=== PATIENT | male | born 1970 | race Two or more races ===

== ENCOUNTER 2019-01-14 07:21 | Outpatient (CLI) | payer OTHER | END 2019-01-14 07:24 | disposition home or self-care (01) | LOC: RAD 07:21 | DX: J06.9 Acute upper respiratory infection, unspecified (principal) ==

== ENCOUNTER 2019-02-10 08:28 | Outpatient (CLI) | payer OTHER | END 2019-02-10 08:41 | disposition home or self-care (01) | LOC: LAB 08:28 | DX: R31.0 Gross hematuria (principal); Z51.81 Encounter for therapeutic drug level monitoring ==

== ENCOUNTER 2019-02-12 07:29 | Outpatient (CLI) | payer OTHER | END 2019-02-12 07:34 | disposition home or self-care (01) | LOC: TOM 07:29 | DX: D35.00 Benign neoplasm of unspecified adrenal gland (principal); R31.0 Gross hematuria ==

== ENCOUNTER 2019-03-03 07:11 | Outpatient (CLI) | payer OTHER | END 2019-03-03 07:30 | disposition home or self-care (01) | LOC: SONOGRAMA 07:11 | DX: Q53.10 Unspecified undescended testicle, unilateral (principal) ==

== ENCOUNTER → 2021-05-05 08:35 | Outpatient (CLI) | payer OTHER | END | disposition home or self-care (01) | LOC: RAD 08:35 | PROVIDERS: ATTEND Internal Medicine Rheumatology | DX: M50.323 Other cervical disc degeneration at C6-C7 level (principal); M51.36 Other intervertebral disc degeneration, lumbar region; M15.0 Primary generalized (osteo)arthritis ==

== ENCOUNTER 2022-05-13 07:59 | Outpatient (CLI) | payer OTHER | END 2022-05-13 08:02 | disposition home or self-care (01) | LOC: RAD 07:59 | PROVIDERS: ATTEND Podiatrist Foot Surgery | DX: M77.41 Metatarsalgia, right foot (principal); M77.42 Metatarsalgia, left foot ==

== ENCOUNTER 2022-09-13 08:06 | Outpatient (CLI) | payer OTHER | END 2022-09-13 08:18 | disposition home or self-care (01) | LOC: SONOGRAMA 08:06 | PROVIDERS: ATTEND Internal Medicine Cardiovascular Disease | DX: E03.9 Hypothyroidism, unspecified (principal) ==